=== PATIENT | female | born 1965 | race Caucasian/White ===

== ENCOUNTER 2018-08-29 13:24 | Outpatient (CLI) | payer OTHER ==
[2018-08-29] MEDS ORDERED: BUFFERED LIDOCAINE 10 ML SYRINGE ONE (13:55)
[2018-08-29] MEDS ORDERED: BUFFERED LIDOCAINE 10 ML SYRINGE IU ONE (15:31)
--- NOTE | 2018-08-29 16:15 | Ultrasound Report ---
Reason: THYROID NODULE Procedure Date: 08/29/2018 Accession Number: [id number] / [id number] Procedure: US - FNA Bx w/US Gnd les CPT Code: 82445 FULL RESULT: EXAM: Thyroid Fine Needle Aspiration EXAM DATE: 08/29/2018 03:19 PM. CLINICAL HISTORY: Complex appearing 4.7 x 1.5 x 2.8 cm right thyroid nodule. COMPARISON: 07/02/2018 outside thyroid ultrasound. TECHNIQUE: The risks, benefits, and alternatives of the procedure were discussed with the patient. All questions were answered. Written and verbal consent were obtained. A site was marked over the large right thyroid nodule using sonographic guidance. Then the site was prepped and draped in a sterile manner. Local anesthesia was performed with 1% lidocaine. Four 22 gauge fine-needle aspirates/passes were performed through the right nodule. Two specimens are placed in ThyroSeq and 2 specimens are placed in CytoLyte. Estimated blood loss was 0 mL. Sonographic images demonstrate needle placement within the right thyroid nodule on all 4 passes.. FINDINGS IMPRESSION: Successful ultrasound-guided right thyroid FNA. RADIA
== END 2018-08-29 13:25 | disposition home or self-care (01) ==
LOC: DI 13:24
PROVIDERS: ATTEND Otolaryngology
DX: E04.1 Nontoxic single thyroid nodule (principal)
CPT/HCPCS: 10005

== ENCOUNTER 2021-04-26 08:48 | Outpatient (CLI) | payer OTHER ==
--- NOTE | 2021-04-26 11:28 | MRI Report ---
PROCEDURE: Knee LT W/O INDICATIONS: LEFT KNEE PAIN TECHNIQUE: Noncontrast sagittal PD fast spin echo and T2 fast spin echo with fat saturation, sagittal 3-D gradie nt sequence with fat saturation; coronal T1 spin echo and PD fast spin echo with fat saturation, and axial PD fast spin echo with fat saturation through the knee. COMPARISON: June 26, 2008. Findings: Medial meniscus: Deficiency of the posterior horn, compatible prior meniscectomy. Blunting of the jose ramon e edge, compatible with radial tear ([id number]). Lateral meniscus: No surface communication/tear. LIGAMENTS/TENDONS: Patellar tendon: Intact. Distal quadriceps tendon: Intact. Hoffa's fat pad: No evidence of fibrosis or mass. PCL: Intact. ACL: Intact. Lateral collateral ligament complex: No significant abnormality. Posterolateral corner: No significant abnormality. Medial collateral ligament: No significant abnormality.. MARROW: Faint T2 hyperintense signal in the posterior aspect, medial tibial plateau, which may refle ct contusion or subchondral edema. Persistent 1.2 x 1.1 cm T2 hyperintense/T1 hypointense lesion is s een underlying the medial tibial spine, which may reflect an intraosseous ganglion or fibrocystic aiden nge. Tricompartment osteophytosis. CARTILAGE: Signal heterogeneity and thinning of the tricompartment hyaline cartilage, most prominentl y involving the lateral patella facet. Muscles: No significant edema or atrophy. Joint effusion/Sen's cyst: Small joint effusion. Trace fluid in the popliteal fossa. Subcutaneous soft tissues: Prepatellar soft tissue edema. IMPRESSION: 1. Deficiency of the posterior horn, medial meniscus, compatible with meniscectomy. Blunting of the m edial meniscus free edge, concerning for radial tear. 2. 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 3. Small joint effusion. 4. Prepatellar soft tissue edema. Reviewed by: Tree Woods MD on 04/26/2021 11:27 AM PST Approved by: Tree Woods MD on 04/26/2021 11:27 AM PST Station ID: [id number]
== END 2021-04-26 08:49 | disposition home or self-care (01) ==
LOC: DI 08:48
PROVIDERS: ATTEND Family Medicine
DX: R93.6 Abnormal findings on diagnostic imaging of limbs (principal); R93.89 Abnormal findings on diagnostic imaging of other specified body structures; M25.462 Effusion, left knee